=== PATIENT | female | born 1940 ===

== ENCOUNTER 2016-10-28 07:01 | Outpatient (CLI) | payer MEDICARE, OTHER | END 2016-10-28 07:02 | disposition home or self-care (01) | LOC: NAV LABSP 07:01 | PROVIDERS: ATTEND Family Medicine | DX: I50.22 Chronic systolic (congestive) heart failure (principal); I25.10 Atherosclerotic heart disease of native coronary artery without angina pectoris | CPT/HCPCS: 36415; 83880 ==

== ENCOUNTER 2016-11-05 17:42 | Outpatient (CLI) | payer MEDICARE, OTHER ==
[2016-11-05 22:18] LABS: Blood, Urine Negative (Negative); Glucose, Urine (Dipstick) Negative (Negative); Ketone, Urine 15 mg/dL (Negative); Nitrite Negative (Negative); Protein, Urine (Dipstick) 100 mg/dL (Neg-Trace)
[2016-11-05 22:26] LABS: Squamous Epithelial 0-3 HPF (0-3); WBC/HPF 0-3 HPF (0-3)
== END 2016-11-05 17:43 | disposition home or self-care (01) ==
LOC: NAV LABSP 17:42
PROVIDERS: ATTEND Family Medicine
DX: E11.9 Type 2 diabetes mellitus without complications (principal); J01.90 Acute sinusitis, unspecified; R53.1 Weakness; I69.898 Other sequelae of other cerebrovascular disease; I26.99 Other pulmonary embolism without acute cor pulmonale; I10 Essential (primary) hypertension
CPT/HCPCS: 81003; 81015; 87086

== ENCOUNTER 2016-11-06 07:10 | Outpatient (CLI) | payer MEDICARE, OTHER ==
[2016-11-06 09:22] LABS: Anion Gap 14 mmol/L (10-20); BUN (Urea Nitrogen) 28 mg/dL (9.8-20.1); Calc. Creatinine Clearance 0 mL/min (70-130); Calcium 8.7 mg/dL (7.8-10.44); Carbon Dioxide 33 mmol/L (23-31); Chloride 105 mmol/L (98-107); Estimated GFR-MDRD 64
[2016-11-06 09:26] LABS: Hemoglobin A1c 5.5 % (4.0-6.0)
[2016-11-06 11:54] LABS: Band 10 % (5-11); Hematocrit 43.1 % (36.0-47.0); Hypochromia SLIGHT = 6-15 cells (100X) (0-5/hpf); Mean Platelet Volume 8.4 fL (7.4-10.4); Neutrophil 36 % (42-75); Reactive Lymphocytes 15 % (0-10); Red Blood Cell (RBC) Count 4.44 mill/uL (4.20-5.40); White Blood Cell (WBC) Count 6.8 thou/uL (4.8-10.8)
== END 2016-11-06 07:11 | disposition home or self-care (01) ==
LOC: NAV LABSP 07:10
PROVIDERS: ATTEND Family Medicine
DX: E08.9 Diabetes mellitus due to underlying condition without complications (principal); I67.9 Cerebrovascular disease, unspecified; R09.02 Hypoxemia
CPT/HCPCS: 36415; 80048; 83036; 85025